=== PATIENT | female | born 2000 | race Caucasian/White ===

== ENCOUNTER 2022-08-03 12:02 | Emergency (ER) | payer OTHER, SELFPAY ==
--- NOTE | ~2022-08-03 | XR_ITS ---
EXAMINATION: XR knee LT min 4V DATE: 08/03/2022 13:23 INDICATION: Left knee pain. Fall. TECHNIQUE: 5 views of left knee were obtained. COMPARISON: None. FINDINGS: Bone alignment is normal. No fracture. Joint spaces are well maintained. There is no knee j oint effusion. IMPRESSION: 1. Normal left knee. Reviewed, dictated and finalized at location B. IMPRESSION: 1. Normal left knee.
[2022-08-03 12:57] VITALS: BP 115/60; PULSE 95; RESP 16; TEMP 37.2; O2SAT 100
--- NOTE | 2022-08-03 13:40 | ED.LOWEXIN ---
HPI - Extremity Injury (Lower) General Chief Complaint: Extremity Injury, Lower Stated Complaint: left knee injury Time Seen by Provider: 08/03/22 13:40 Source: patient Mode of arrival: ambulatory Limitations: no limitations History of Present Illness HPI Narrative: 21-year-old female presented for complaint of left knee pain, bruising for 3 days after injury. She was playing volleyball and fell onto the bent left knee. She was wearing a pad at the time. Since then she is had bruising and pain. She denies decreased range of motion, numbness, tingling, swelling or weakness of the lower extremity. She is taken ibuprofen. Related Data Home Medications Medication Instructions Recorded Confirmed medroxyprogesterone 150 mg/mL 150 mg IM [id number] 08/03/22 08/03/22 intramuscular suspension (Depo-Provera) Allergies Allergy/AdvReac Type Severity Reaction Status Date / Time No Known Allergies Allergy Verified 08/03/22 13:10 Review of Systems Review of Systems: CONSTITUTIONAL: Denies body aches, fever, chills CARDIOVASCULAR: Denies chest pain, palpitations, or edema. RESPIRATORY: Denies cough or dyspnea. SKIN: Denies rash, itching, or wounds. MUSCULOSKELETAL: Reports knee pain NEUROLOGIC: Denies headache, numbness, tingling, or weakness. All systems reviewed & are unremarkable except as noted in HPI and below PMFSH Comments At time of signature, I have reviewed and agree with nursing past medical, surgical, social and family history unless otherwise noted. Please see nursing chart for further information. There is no relevant family history pertinent to the presenting complaint Exam Narrative: GENERAL: Well-appearing CHEST: Speaks in full sentences. No respiratory distress. HEART: Regular rate and rhythm. Normal and equal peripheral pulses. EXTREMITIES: Left medial and anterior knee bruising; mild tenderness with palpation. Knee has normal strength and sensation, normal range of motion. No swelling, No open wounds or obvious deformity; pulse palpable and equal bilaterally, skin warm, dry, pink. Capillary refill less than 3 seconds. SKIN: Warm, dry, no rash. NEURO: Alert and oriented x3. Course Course Emergency Course: Patient is aware of diagnosis, understands and agrees to treatment plan. Anticipatory guidance given. Patient agrees to follow-up as directed and is aware of reasons to seek care at the emergency department. Portions of this record may have been created with voice recognition software Level of Care: [facility] Visit Vital Signs Vital signs: Vital Signs Temperature 99.0 F 08/03/22 12:57 Pulse Rate 95 08/03/22 12:57 Respiratory Rate 16 08/03/22 12:57 Blood Pressure 115/60 08/03/22 12:57 Pulse Oximetry 100 08/03/22 12:57 Oxygen Delivery Room Air 08/03/22 12:57 Temperature 99.0 F 08/03/22 12:57 Pulse Rate 95 08/03/22 12:57 Respiratory Rate 16 08/03/22 12:57 Blood Pressure 115/60 08/03/22 12:57 Pulse Oximetry 100 08/03/22 12:57 Oxygen Delivery Room Air 08/03/22 12:57 Reviewed MDM - Extremity Injury (Lower) MDM Narrative Medical decision making narrative: Result of x-ray reviewed with patient. She states she has a knee sleeve at home and will apply. Advised supportive measures and signs/symptoms to go to the ER. Pt is appropriate for outpt treatment and f/u. Differential Diagnosis Differential diagnosis: Likely acute internal derangement of knee and other (Sprain, strain, arthritis, bursitis, tendinitis) Imaging Data Radiologist's impression: Patient: Mili Vásquez : 2000 MR#: [id number] Age/Sex: 21 / F Acct:[id number] Loc: [facility]? ? ADM Date: 08/03/22Attending Dr: Ordering Physician: Stephany Uriarte APRN Date of Service: 08/03/22 Procedure(s): XR knee LT min 4V Accession Number(s): [id number] cc: Stephany Uriarte APRN~ EXAMINATION: XR knee LT min 4V DATE: 08/03/2022 13:23 INDICATION: Left
== END 2022-08-03 13:51 | disposition home or self-care (01) ==
PROVIDERS: Emergency Provider Nurse Practitioner Family
DX: M25.562 Pain in left knee (principal)
CPT/HCPCS: 73564; 99213; G0463

== ENCOUNTER 2025-06-19 10:50 | Emergency (ER) | payer OTHER, SELFPAY ==
--- NOTE | 2025-06-19 10:52 | ED_ITS ---
HPI - URI/Sore Throat General Chief Complaint: Upper Respiratory Infection Stated Complaint: upper respiratory Time Seen by Provider: 06/19/25 10:52 Source: patient Mode of arrival: ambulatory Limitations: no limitations History of Present Illness HPI Narrative: Mili is a 24-year-old female patient presenting to the clinic today with complaints of runny nose, cough, and nasal congestion times days. She reports h er boyfriend is also sick with similar symptoms. She denies any fevers, chills, body aches. She has not COVID tested herself. She denies any chest pain or shortness of breath. MD elicited complaint: sore throat and nasal congestion Related Data Home Medications ?Medication ?Instructions ?Recorded ?Confirmed ?Last Taken ?Type norethindrone 1 mg-ethinyl tablet 06/19/25 Unknown Hi story estradiol 20 mcg (24)-iron 75 mg (4) tablet (Blisovi 24 Fe) Allergies Allergy/AdvReac Type Severity Reaction Status Date / Time No Known Allergies Allergy Verified 06/19/25 11:10 Review of Systems Review of Systems: Pertinent positives per HPI. Patient denies any fever, chills, rash, headache, visual changes, dizziness, cough, shortness of breath, chest pain, palpitations, nausea, vomiting, diarrhea, constipation, abdominal pain, or any urinary issues. PMFSH Comments At the time of my signature, I reviewed and agree with the nursing past medical, surgical, social, and family history. There is no relevant family history pertinent to the patient complaint. Exam Narrative: General: Well-developed, well nourished, in no apparent distress Head: Normocephalic, atraumatic Eyes: Pupils equally round and reactive to light bilaterally, EOM intact, sclera and conjunctive clear, no discharge, lids normal Ears: TMs intact and congested, ear canals clear, no drainage, grossly hearing normal. Nose: Nares patent, clear nasal discharge, no inflammation, no sinus tenderness. Mouth: Oral pharynx red without lesions or masses, good dentition, MMM. Postnasal drip Neck: Supple, trachea midline, no enlargement of anterior or posterior cervical nodes, no thyroid masses or goiter palpable. Cardio: Regular rate and rhythm, s1 and s2 normal, no murmur appreciated. Resp: Clear to auscultation bilaterally, no rhonchi, rales, wheezing or rubs Course Course Emergency Course: Portions of this record may have been created with voice recognition software. Level of Care: Express Care Visit Vital Signs Vital signs: Vital Signs Temperature 36.7 C 06/19/25 11:02 Pulse Rate 88 06/19/25 11:02 Respiratory Rate 14 06/19/25 11:02 Blood Pressure 130/81 06/19/25 11:02 Pulse Oximetry 99 06/19/25 11:02 Oxygen Delivery Room Air 06/19/25 11:02 Temperature 36.7 C 06/19/25 11:02 Pulse Rate 88 06/19/25 11:02 Respiratory Rate 14 06/19/25 11:02 Blood Pressure 130/81 06/19/25 11:02 Pulse Oximetry 99 06/19/25 11:02 Oxygen Delivery Room Air 06/19/25 11:02 Vital signs reviewed MDM - URI/Sore Throat MDM Narrative Medical decision making narrative: At the time of visit patient is resting comfortably on the exam table. Patient appears to be nontoxic. Complaints of runny nose, cough, and nasal congestion times days. She reports her boyfriend is also sick with similar symptoms. She denies any fevers, chills, body aches. She has not COVID tested herself. She denies any chest pain or shortness of breath. On exam patient has clear nasal discharge, ear congestion, and postnasal drip. Offered COVID testing and patient declined. Plan: I suspect patient has URI. Work note was given for today. Supportive measures were discussed with the patient and they voiced understanding discharge instructions and agrees to treatment plan. Return precautions reviewed Differential Diagnosis Differential diagnosis: Likely upper respiratory infection, otitis media, sinusitis, viral infection, bronchitis, influenza, pharyngitis and other (COVID) Discharge Plan Discharge Clinical Impression: Upper respiratory infection Qualifiers: URI type: unspecified URI Qualified Code(s): J06.9 - Acute upper respiratory infection, unspecified Patient Disposition: Home Condition: Stable Instructions: Antibiotic Form, Cold Symptoms (ED) Additional Instructions: May take Sudafed as needed for nasal congestion May take DayQuil/NyQuil for cold/flu symptoms Increase fluids and stay well hydrated May take Tylenol or motrin as directed on bottle for pain/fever May use Flonase 1 spray in each nare daily May take OTC antihistamines such as Zyrtec or Claritin daily as directed on bottle May apply Vicks vapor rub to chest to open sinuses Sinus rinses for congestion Cepacol spray, cough drops, throat lozenges, warm tea with honey/lemon, gargle salt water to soothe throat BRAT diet for diarrhea Clear liquids x 24 hours then advance as tolerated for nausea/vomiting Go to the ED if you develop a worsening in your condition- high fever not controlled by Tylenol or Motrin, dehydration, weakness, lethargy, shortness of breath, or chest pain. Follow up with your PCP in 3-5 days if symptoms persist. Patient Language: Mozambican Prescriptions: No Action Blisovi 24 Fe 1 mg-20 mcg (24)/75 mg (4) tablet Follow-up/Referrals: UNKNOWN,DOCTOR [Non-Staff] Stand Alone Forms: Work/School Release IP Time of Disposition: 11:30 Quality NIHSS Nursing Documentation ED NIHSS nursing documentation: reviewed/agree
[2025-06-19 11:02] VITALS: BP 130/81; PULSE 88; RESP 14; TEMP 36.7; O2SAT 99
--- OUTSIDE RECORDS SUMMARY | 2025-06-19 11:27 | XMS_ITS | Encounter Summary ---
Author Organization [facility] Address 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
--- OUTSIDE RECORDS SUMMARY | 2025-06-19 11:27 | XMS_ITS | Encounter Summary ---
Author Organization [facility] Address 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
--- OUTSIDE RECORDS SUMMARY | 2025-06-19 11:27 | XMS_ITS | Encounter Summary ---
Author Organization [facility] Address [address] [place] [address] Care Team Providers Care Esthetics Instructor Name Role Phone Ruben Andrews MD Primary Care Provider [phone] Encounter Details Date Type Department Care Team (Late st Contact Info) Description 06/18/2004 Outpatient Historical [facility] [place] 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
--- OUTSIDE RECORDS SUMMARY | 2025-06-19 11:27 | XMS_ITS | Encounter Summary ---
Author Organization [facility] Address [address] [place] [address] Care Team Providers Care Director Private Name Role Phone Ruben Andrews MD Primary Care Provider Encounter Details Date Type Department Care Team (Late st Contact Info) Description 06/28/2006 Outpatient Historical [facility] [place] 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
--- OUTSIDE RECORDS SUMMARY | 2025-06-19 11:27 | XMS_ITS | Encounter Summary ---
Author Organization [facility] Address [address] [place] [address] Care Team Providers Care Wicker Molded Candles Name Role Phone Ruben Andrews MD Primary Care Provider Encounter Details Date Type Department Care Team (Late st Contact Info) Description 07/22/2006 Outpatient Historical [facility] [place] 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
--- OUTSIDE RECORDS SUMMARY | 2025-06-19 11:27 | XMS_ITS | Encounter Summary ---
Author Organization [facility] Address [address] [place] [address] Care Team Providers Care Stone Operator Name Role Phone Ruben Andrews MD Primary Care Provider Encounter Details Date Type Department Care Team (Late st Contact Info) Description 08/23/2006 Outpatient Historical [facility] [place] 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
--- OUTSIDE RECORDS SUMMARY | 2025-06-19 11:27 | XMS_ITS | Encounter Summary ---
Author Organization [facility] Address [address] [place] [address] Care Team Providers Care Gallery Or Museum Attendant Name Role Phone Ruben Andrews MD Primary Care Provider Encounter Details Date Type Department Care Team (Late st Contact Info) Description 08/13/[address] [facility] [place] 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
--- OUTSIDE RECORDS SUMMARY | 2025-06-19 11:27 | XMS_ITS | Encounter Summary ---
Author Organization [facility] Address [address] [place] [address] Care Team Providers Care Ct Technician Name Role Phone Ruben Andrews MD Primary Care Provider Encounter Details Date Type Department Care Team (Late st Contact Info) Description 05/25/2007 Outpatient Historical [facility] [place] 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
--- OUTSIDE RECORDS SUMMARY | 2025-06-19 11:27 | XMS_ITS | Encounter Summary ---
Author Organization [facility] Address [address] [place] [address] Care Team Providers Care Lining Setter Name Role Phone Ruben Andrews MD Primary Care Provider Encounter Details Date Type Department Care Team (Late st Contact Info) Description 07/02/2003 Outpatient Historical [facility] [place] [address] [place] [phone] Herminio Tejada MD [address] [place], [place] [phone] Social History Tobacco Use Types Packs/Day Years Used Date Smoking Tobacco: Never Assessed Comments Unknown Sex and Gender Information Value Date Recorded Sex Assigned at Not on file Legal Sex Female 2:44 AM GRIP Gender Identity Not on file Sexual Orientation Not on file documented as of this encounter Plan of Treatment Not on file documented as of this encounter Visit Diagnoses Not on filedocumented in this encounter Care Teams Lining Setter Relationship Specialty Start Date End Date Ruben Andrews MD [address] [place] [phone] PCP - General Internal Medicine 04/01/21 documented as of this encounter
--- OUTSIDE RECORDS SUMMARY | 2025-06-19 11:27 | XMS_ITS | Encounter Summary ---
Author Organization [facility] Address [address] [place] [address] Care Team Providers Care Primary Care Provider Name Role Phone Ruben Andrews MD Primary Care Provider [phone] Encounter Details Date Type Department Care Team (Late st Contact Info) Description 11/06/2003 Outpatient Historical [facility] [place] [address] [place] [address] Tona Miranda Social History Tobacco Use Types Packs/Day Years Used Date Smoking Tobacco: Never Assessed Comments Unknown Sex and Gender Information Value Date Recorded Sex Assigned at Not on file Legal Sex Female 2:[address] TECHNOLOGIST Gender Identity Not on file Sexual Orientation Not on file documented as of this encounter Plan of Treatment Not on file documented as of this encounter Visit Diagnoses Not on filedocumented in this encounter Care Teams Primary Care Provider Relationship Specialty Start Date End Date Ruben Andrews MD [address] [place] [phone] PCP - General Internal Medicine 04/01/21 documented as of this encounter
--- OUTSIDE RECORDS SUMMARY | 2025-06-19 11:27 | XMS_ITS | Encounter Summary ---
Author Organization [facility] Address [address] [place] [address] Care Team Providers Care Bisque Grader Name Role Phone Ruben Andrews MD Primary Care Provider Encounter Details Date Type Department Care Team (Late st Contact Info) Description 09/15/2007 Outpatient Historical [facility] [place] 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
--- OUTSIDE RECORDS SUMMARY | 2025-06-19 11:27 | XMS_ITS | Clinical Summary ---
Author Organization [facility] Administrative Offices Address [address] [place] [address] Care Team Providers Care Assistant Professor Of Surgery Name Role Phone Ruben Andrews MD Primary Care Provider [phone] Allergies No known active allergies Medications amphetamine-dextr oamphetamine (Adderall XR) 10 mg Extended Release 24 hour capsuleIndication s:Attention deficit disorder, unspecified hyperactivity presence Take 1 Capsule (10 mg) by mouth daily in the morning. Max Daily Amount: 10 mg 30 Capsule 4 Active Norethindrn A-E estradiol-Iron (Microgestin 24 FE) 1 mg-20 mcg (24)/75 mg (4) tabletIndications :Oral contraceptive pill surveillance Take 1 Tablet by mouth daily. 84 Tablet 3 5 Active fluconazole (DIFLUCAN) 150 mg tablet Take 1 tab (150 mg) by mouth on day one. Take additional tab (150 mg) by mouth 3 days after initial dose 2 Tablet 5 Active Active Problems Problem Noted Date Diagnosed Date Screening for tuberculosis 11/22/2023 Sprain of medial collateral ligament of knee Weakness of left lower extremity 01/10/2018 Disorder of patellofemoral joint 01/20/2017 Resolved Problems Problem Noted Date Diagnosed Date Resolved Date Folliculitis 05/22/2010 06/18/2010 Overview (05/22/2010): exposure to hot tub Cellulitis 05/22/2010 06/18/2010 Encounters Date Type Department Care Team Description 05/02/2025 External Device Data STL ABSTRACTION Provider, Abstract 04/10/2025 External Device Data STL ABSTRACTION Provider, Abstract 04/06/2025 Results Follow-Up [facility] [facility] [address] [facility] [address] [place] [address] Ivelisse Best NP CERV/VAG CYTO AGE BASED SCREEN PAP 04/04/2025 5:40 PM CDT Office Visit [facility] [employer] [facility] [address] [facility] [address] [place] [address] Ivelisse Best NP Encounter for gynecological examination with abnormal finding (Primary Dx); Screening examination for STD (sexually transmitted disease); Breakthrough bleeding on control pills; Oral contraceptive pill surveillance from Last 3 Months Immunizations Immunization Administration Dates Next Due (ADACEL/BOOSTRIX)(10 YR UP) TDAP VACCINE, 0.5ML, IM 06/01/2014 (GARDASIL 9)(9-45 YRS) HUMAN PAPILLOMAVIRUS VACCINE, TYPES 6, 11, 16, 18, 31, 33, 45, 52, 58, NONAVALENT (9VHPV), 2 OR 3 DOSE, IM 03/29/2017 (GARDASIL)(9-45 YRS) HUMAN PAPILLOMAVIRUS VACCINE, TYPES 6, 11, 16, 18, QUADRIVALENT (4VHPV), 3 DOSE, IM 03/23/2016 (HAVRIX/VAQTA)(12 MO-18 YRS) HEPATITIS A VACCINE 0.5 ML PED/ADOL 2 DOSE, IM 06/11/2009 (INFANRIX)(6 WKS-6 YRS) DIPT HERIA, TETANUS TOXOIDS, AND ACCELLULAR PERTUSSIS VACCINE (DTAP), 0.5 ML IM 05/30/2008,06/18/2004,05/24/2003,03/26,01/22/2003 (IPOL)(6 WKS AND UP) POLIOVI JUAN VACCINE, INACTIVATED (IPV), 3 DOSE, SUBCUT OR IM 05/30/2008,05/24/2003,03/26/2003,01/22 (M-M-R II/PRIORIX)(12 MO UP) MEASLES, MUMPS AND RUBELLA VIRUS VACCINE, 0.5 ML IM/SUBCUT 05/25/2007,03/12/2004 (MENACTRA)(9 MO-55 YR) MENIN GOCOCCAL POLYSACCHARIDE A, C, Y AND W-135 DIPTHERIA TOXOID CONJUGATE VACCINE, (PF), 0.5ML, IM 05/20/2020 (RECOMBIVAX HB/ENGERIX-B)(0- 19 YRS) HEPATITIS B VACCINE 5 MCG/0.5 ML OR 10 MCG/0.5 ML PED OR ADOL 3 DOSE (PF), IM 2002 (VARIVAX)(12 MOS UP)VARICELL A VIRUS VACCINE (PF) 0.5 ML, SUB CUT 05/30/2008,11/28/2003 HIB, Unspecified Formulation 11/28/2003,03/26/20 03,01/22/2003 Hepatitis A Vaccine 05/25/2007 Hepatitis B Vaccine 11/28/2003,03/26/2003,2002 INFLUENZA VACCINE QUADRIVALE NT 3 YR UP PF IM 09/08/2020 INFLUENZA VACCINE QUADRIVALE NT 6 MOS UP PF IM 11/19/2023 Influenza Seasonal Unspecifi ed Formulation IM 07/22/2006,08/05/2005,10/04/2003,08/29 Meningococcal A Conjugate Vaccine IM 06/01/2014 Meningococcal ACWY Vaccine, Unspecified Formulation 06/01/2014 Pneumococcal 7-valent conjug ate vaccine IM 06/18/2004,05/24/2003,03/26/2003,01/22 Skin Test TB 11/19/2023 Family History Medical History Relation Name Comments Diabetes Maternal Grandfather Diabetes Paternal Grandfather Relation Name Status Comments Brother Alive Father Alive Maternal Grandfather Mother Alive Paternal Grandfather Social History Tobacco Use Types Packs/Day Years Used Date Smoking Tobacco: Never Smokeless Tobacco: Never Tobacco Cessation:Counseling Given: Not Answered Alcohol Use Standard Drinks/Week Comments Yes 0 (1 standard drink = 0.6 oz pur e alcohol) OCC Comments No Sex and Gender Information Value Date Recorded Sex Assigned at Not on file Legal Sex Female 2:44 AM BASKET TURNER Gender Identity Not on file Sexual Orientation Not on file Last Filed Vital Signs Vital Sign Reading Time Taken Comments Blood Pressure 132/86 04/04/2025 5:32 PM CDT Pulse 81 03/08/2024 11:25 AM CDT Temperature 36.3 C (97.4 F) 03/08/2024 11:25 AM CDT Respiratory Rate 18 02/18/2022 2:02 AM CDT Oxygen Saturation 97% 03/08/2024 11:25 AM CDT Inhaled Oxygen Concentration - - Weight 72.2 kg (159 lb 3.2 oz) 04/04/2025 5:32 P M CDT Height 177.8 cm (5' 10) 04/04/2025 5:32 PM CDT Body Mass Index 22.84 04/04/2025 5:32 PM CDT Plan of Treatment Health Maintenance Due Date Last Done Comments HPV/Cotest (21-29) 2023 DTAP/TDAP/TD VACCINES (7 - T d or Tdap) 06/01/2024 06/01/2014, 05/30/2008, 06/18/2004, Additional history exists INFLUENZA VACCINE (#1) 2025 , 06/14/2023, 09/08/2020, Additional history exists COVID-19 Vaccine (3 - 2024-2 6 season) 2025 05/06/2021, 04/15/2021 CHLAMYDIA SCREENING (ANNUAL) 11-24 YEARS 07/11/2025 07/11/2024, 12/15/2021, 09/25/2020 CERVICAL CANCER SCREENING 04/04/2028 PAP SMEAR 04/04/2028 04/04/2025, 12/03/2023 HEPATITIS B VACCINES Completed 11/28/2003, 03/26/2003, 01/22/2003, Additional history exists HPV VACCINES Completed 03/29/2017, 03/23/2016 Procedures Procedure Name Priority Date/Time Associated Diagnosis Comments CERV/VAG CYTO AGE BASED SCREEN PAP Routine 04/04/2025 5:53 PM CDT Encounter for gynecological examination with abnormal finding Screening examination for STD (sexually transmitted disease) VAGINOSIS/VAGINITI S PANEL PLUS Routine 07/11/2024 11:08 AM CDT Acute vaginitis Screening examination for STD (sexually transmitted disease) from Last 3 Months or Most Recently Relevant to Health Maintenance Results * CERV/VAG CYTO AGE BASED SCREEN PAP (04/04/2025 5:53 PM CDT) COMMENT (PAP): [facility] Comment: This order for age-based cervical cancer and STI screening follows ACOG guidelines(PB 168, 140, YXB463). See individual assays for performing site location. CLINICAL INFORMATION [facility] Comment:None given LAST MENSTRUAL PERIOD [place] Comment:04/01/2025 PREV PAP: [place] Comment:NONE GIVEN PREV BX: [place] Comment:NONE GIVEN SOURCE [place] Comment:Endocervix ADEQUACY: [place] Comment: Satisfactory for evaluation. Endocervical/transformation zone component present. PAP INTERP [facility] Comment: Cytology Results: Negative for intraepithelial lesion or malignancy. COMMENT (PAP TEST) [facility] Comment: This Pap test has been evaluated with computer assisted technology. SOCIAL MEDIA ANALYST: [facility] Comment: BES, CT(ASCP) CT screening location: [place] [address] [place] [address] EXPLANATORY NOTE [facility] Comment: EXPLANATORY NOTE: The Pap is a screening test for cervical cancer. It is not a diagnostic test and is subject to false negative and false positive results. It is most reliable when a satisfactory sample, regularly obtained, is submitted with relevant clinical findings and history, and when the Pap result is evaluated along with historic and current clinical information. CHLAMYDIA TRACHOMATIS RNA, TMA, UROGENITAL NOT DETECTED NOT DETECTED [facility] NEISSERIA GONORRHOEAE RNA, TMA, UROGENITAL NOT DETECTED NOT DETECTED [facility] COMMENT INFECTIOUS DISEASE [facility] Comment: The analytical performance characteristics of this assay, when used to test SurePath(TM) specimens have been determined by [facility]. The modifications have not been cleared or approved by the FDA. This assay has been validated pursuant to the CLIA regulations and is used for clinical purposes. For additional information, please refer to https://education.Visedo/faq/ZQE165 (This link is being provided for information/ educational purposes only.) Test Performed at: [facility] [address] [place] [address] [facility] Genital SWAB OF ENDOCERVIX / Unknown 04/04/2025 5:53 PM CDT 04/05/2025 4:39 PM CDT Ivelisse Best NP PATHOLOGY/CYTOLOGY O RDERABLES Final Result Performing Organization Address City/[facility]/ZIP Co de Phone Number [facility] [phone] [facility] [address] [place] [address] * VAGINOSIS/VAGINITIS PANEL PLUS (07/11/2024 11:08 AM CDT) BACTERIAL VAGINOSIS NEGATIVE NEGATIVE [facility] ALEJANDRA SPECIES NOT DETECTED NOT DETECTED [facility] ALEJANDRA GLABRATA NOT DETECTED NOT DETECTED [facility] Comment: Alejandra species C. albicans, C. tropicalis, C. parapsilosis, and/or C. dubliniensis can be detected, but not differentiated, in the Alejandra spp. result. TRICHOMONAS VAGINALIS (TV), TMA NOT DETECTED NOT DETECTED [facility] CHLAMYDIA TRACHOMATIS RNA, TMA, UROGENITAL NOT DETECTED NOT DETECTED [facility] NEISSERIA GONORRHOEAE RNA, TMA, UROGENITAL NOT DETECTED NOT DETECTED [facility] Comment: For additional information, please refer to https://education.Visedo/faq/KYF188 (This link is being provided for information/ educational purposes only.) Test Performed at: [facility] [address] [place] [address] Robbin Contreras MD Genital SPECIMEN FROM VAGINA / Unknown 07/11/2024 11:08 AM CDT 07/12/2024 3:38 AM CDT Ivelisse Best NP MICROBIOLOGY - GENER AL ORDERABLES Final Result [facility] [phone] [facility] [address] [place] [address] from Last 3 Months or Most Recently Relevant to Health Maintenance Insurance RX [employer] RX Member Subscriber Plan / Payer (Ef fective 2023-Present) Name:Mili Vásquez Relation to Subscriber:Self Name:Mili Vásquez Subscriber ID:Not on file Payer ID:Not on file Type:RX Commercial Address: [address] [place] [employer] [address] Care Teams Assistant Professor Of Surgery Relationship Specialty Start Date End Date Ruben Andrews MD [address] [place] [address] PCP - General Internal Medicine 04/01/21
--- OUTSIDE RECORDS SUMMARY | 2025-06-19 11:27 | XMS_ITS | Encounter Summary ---
Author Organization [facility] Address [address] [place] [address] Care Team Providers Care Paper Goods Machine Operator Name Role Phone Ruben Andrews MD Primary Care Provider Encounter Details Date Type Department Care Team (Late st Contact Info) Description 03/26/2003 Outpatient Historical [facility] Pediatrics [place] [address] [place] [phone] Herminio Tejada MD [address] [place], [place] [id number] Social History Tobacco Use Types Packs/Day Years Used Date Smoking Tobacco: Never Assessed Comments Unknown Sex and Gender Information Value Date Recorded Sex Assigned at Not on file Legal Sex Female 2:44 AM CITRUS FRUIT PACKER Gender Identity Not on file Sexual Orientation Not on file documented as of this encounter Plan of Treatment Not on file documented as of this encounter Visit Diagnoses Not on filedocumented in this encounter Care Teams Paper Goods Machine Operator Relationship Specialty Start Date End Date Ruben Andrews MD [address] [place] [address] PCP - General Internal Medicine 04/01/21 documented as of this encounter
--- OUTSIDE RECORDS SUMMARY | 2025-06-19 11:27 | XMS_ITS | Encounter Summary ---
Author Organization [facility] Address [address] [place] [address] Care Team Providers Care Instant Print Operator Name Role Phone Ruben Andrews MD Primary Care Provider Encounter Details Date Type Department Care Team (Late st Contact Info) Description 12/02/2007 Outpatient Historical [facility] [place] [address] [place] [address] Yahir Pandya MD NO ADDRESS ON FILE Social History Tobacco Use Types Packs/Day Years Used Date Smoking Tobacco: Never Assessed Comments Unknown Sex and Gender Information Value Date Recorded Sex Assigned at Not on file Legal Sex Female 2:44 AM TECHNICAL SERVICES REPRESENTATIVE Gender Identity Not on file Sexual Orientation Not on file documented as of this encounter Plan of Treatment Not on file documented as of this encounter Visit Diagnoses Not on filedocumented in this encounter Care Teams Instant Print Operator Relationship Specialty Start Date End Date Ruben Andrews MD [address] [place] [address] PCP - General Internal Medicine 04/01/21 documented as of this encounter
--- OUTSIDE RECORDS SUMMARY | 2025-06-19 11:27 | XMS_ITS | Encounter Summary ---
Author Organization [facility] Address [address] [place] [address] Care Team Providers Care Leaflet Or Newspaper Deliverer Name Role Phone Ruben Andrews MD Primary Care Provider Encounter Details Date Type Department Care Team (Late st Contact Info) Description 03/22/2006 Outpatient Historical [facility]s [place] [address] [place] [phone] Herminio Tejada MD [address] [place], [place] [phone] Social History Tobacco Use Types Packs/Day Years Used Date Smoking Tobacco: Never Assessed Comments Unknown Sex and Gender Information Value Date Recorded Sex Assigned at Not on file Legal Sex Female 2:44 AM CIRCULATION ANALYST Gender Identity Not on file Sexual Orientation Not on file documented as of this encounter Plan of Treatment Not on file documented as of this encounter Visit Diagnoses Not on filedocumented in this encounter Care Teams Leaflet Or Newspaper Deliverer Relationship Specialty Start Date End Date Ruben Andrews MD [address] [place] [address] PCP - General Internal Medicine 04/01/21 documented as of this encounter
--- OUTSIDE RECORDS SUMMARY | 2025-06-19 11:27 | XMS_ITS | Encounter Summary ---
Author Organization [facility] Address [address] [place] [address] Care Team Providers Care Car Distributor Name Role Phone Ruben Andrews MD Primary Care Provider Encounter Details Date Type Department Care Team (Late st Contact Info) Description 12/17/2004 Outpatient Historical [facility] Pediatrics [place] [address] [place] [phone] Herminio Tejada MD [address] [place], [place] [phone] Social History Tobacco Use Types Packs/Day Years Used Date Smoking Tobacco: Never Assessed Comments Unknown Sex and Gender Information Value Date Recorded Sex Assigned at Not on file Legal Sex Female 2:44 AM FREIGHT SALES BROKER Gender Identity Not on file Sexual Orientation Not on file documented as of this encounter Plan of Treatment Not on file documented as of this encounter Visit Diagnoses Not on filedocumented in this encounter Care Teams Car Distributor Relationship Specialty Start Date End Date Ruben Andrews MD [address] [place] [address] PCP - General Internal Medicine 04/01/21 documented as of this encounter
--- OUTSIDE RECORDS SUMMARY | 2025-06-19 11:27 | XMS_ITS | Encounter Summary ---
Author Organization [facility] Address [address] [place] [address] Care Team Providers Care Restaurant Host Name Role Phone Ruben Andrews MD Primary Care Provider Encounter Details Date Type Department Care Team (Late st Contact Info) Description 11/28/2003 Outpatient Historical [facility]s [place] [address] [place] [phone] Herminio Tejada MD [address] [place], [place] [phone] Social History Tobacco Use Types Packs/Day Years Used Date Smoking Tobacco: Never Assessed Comments Unknown Sex and Gender Information Value Date Recorded Sex Assigned at Not on file Legal Sex Female 2:44 AM CABLE INSTALLER Gender Identity Not on file Sexual Orientation Not on file documented as of this encounter Plan of Treatment Not on file documented as of this encounter Visit Diagnoses Not on filedocumented in this encounter Care Teams Restaurant Host Relationship Specialty Start Date End Date Ruben Andrews MD [address] [place] [address] PCP - General Internal Medicine 04/01/21 documented as of this encounter
--- OUTSIDE RECORDS SUMMARY | 2025-06-19 11:27 | XMS_ITS | Encounter Summary ---
Author Organization [facility] Address [address] [place] [address] Care Team Providers Care Translational Specialist Name Role Phone Ruben Andrews MD Primary Care Provider [phone] Encounter Details Date Type Department Care Team (Late st Contact Info) Description 12/12/2003 Outpatient Historical [facility] Pediatrics [place] [address] [place] [phone] Herminio Tejada MD [address] [place], [place] [phone] Social History Tobacco Use Types Packs/Day Years Used Date Smoking Tobacco: Never Assessed Comments Unknown Sex and Gender Information Value Date Recorded Sex Assigned at Not on file Legal Sex Female 2:44 AM PATTERN DRUM MAKER Gender Identity Not on file Sexual Orientation Not on file documented as of this encounter Plan of Treatment Not on file documented as of this encounter Visit Diagnoses Not on filedocumented in this encounter Care Teams Translational Specialist Relationship Specialty Start Date End Date Ruben Andrews MD [address] [place] [address] PCP - General Internal Medicine 04/01/21 documented as of this encounter
--- OUTSIDE RECORDS SUMMARY | 2025-06-19 11:27 | XMS_ITS | Encounter Summary ---
Author Organization [facility] Address [address] [place] [address] Care Team Providers Care Elevator Troubleshooter Name Role Phone Ruben Andrews MD Primary Care Provider Encounter Details Date Type Department Care Team (Late st Contact Info) Description 02/28/2007 Outpatient Historical [facility] Pediatrics [place] [address] [place] [phone] Herminio Tejada MD [address] [place], [place] [phone] Social History Tobacco Use Types Packs/Day Years Used Date Smoking Tobacco: Never Assessed Comments Unknown Sex and Gender Information Value Date Recorded Sex Assigned at Not on file Legal Sex Female 2:44 AM NET SORTER Gender Identity Not on file Sexual Orientation Not on file documented as of this encounter Plan of Treatment Not on file documented as of this encounter Visit Diagnoses Not on filedocumented in this encounter Care Teams Elevator Troubleshooter Relationship Specialty Start Date End Date Ruben Andrews MD [address] [place] [address] PCP - General Internal Medicine 04/01/21 documented as of this encounter
--- OUTSIDE RECORDS SUMMARY | 2025-06-19 11:27 | XMS_ITS | Encounter Summary ---
Author Organization [facility] Address [address] [place] [address] Care Team Providers Care Landscape Gardener Name Role Phone Ruben Andrews MD Primary Care Provider Encounter Details Date Type Department Care Team (Late st Contact Info) Description 12/02/2007 Outpatient Historical [facility] Pediatric[facility] [place] [address] [place] [address] Yahir Pandya MD NO ADDRESS ON FILE Social History Tobacco Use Types Packs/Day Years Used Date Smoking Tobacco: Never Assessed Comments Unknown Sex and Gender Information Value Date Recorded Sex Assigned at Not on file Legal Sex Female 2:44 AM DELI CUTTER SLICER Gender Identity Not on file Sexual Orientation Not on file documented as of this encounter Plan of Treatment Not on file documented as of this encounter Visit Diagnoses Not on filedocumented in this encounter Care Teams Landscape Gardener Relationship Specialty Start Date End Date Ruben Andrews MD [address] [place] [address] [place] [address] PCP - General Internal Medicine 04/01/21 documented as of this encounter
--- OUTSIDE RECORDS SUMMARY | 2025-06-19 11:27 | XMS_ITS | Encounter Summary ---
Author Organization [facility] Address [address] [place] [address] Care Team Providers Care Apiculture Teacher Name Role Phone Ruben Andrews MD Primary Care Provider Encounter Details Date Type Department Care Team (Late st Contact Info) Description 05/09/2003 Outpatient Historical [facility] Pediatrics [place] [address] [place] [phone] Herminio Tejaad MD [address] [place], [place] [phone] Social History Tobacco Use Types Packs/Day Years Used Date Smoking Tobacco: Never Assessed Comments Unknown Sex and Gender Information Value Date Recorded Sex Assigned at Not on file Legal Sex Female 2:44 AM STEAM PAN SPONGER Gender Identity Not on file Sexual Orientation Not on file documented as of this encounter Plan of Treatment Not on file documented as of this encounter Visit Diagnoses Not on filedocumented in this encounter Care Teams Apiculture Teacher Relationship Specialty Start Date End Date Ruben Andrews MD [address] [place] [address] PCP - General Internal Medicine 04/01/21 documented as of this encounter
--- OUTSIDE RECORDS SUMMARY | 2025-06-19 11:27 | XMS_ITS | Encounter Summary ---
Author Organization [facility] Address [address] [place] [address] Care Team Providers Care Chief Engineer'S Helper Name Role Phone Ruben Andrews MD Primary Care Provider Encounter Details Date Type Department Care Team (Late st Contact Info) Description 03/18/2006 Outpatient Historical [facility] Pediatrics [place] [address] [place] [phone] Herminio Tejada MD [address] [place], [place] [phone] Social History Tobacco Use Types Packs/Day Years Used Date Smoking Tobacco: Never Assessed Comments Unknown Sex and Gender Information Value Date Recorded Sex Assigned at Not on file Legal Sex Female 2:44 AM REFINERY OPERATOR VISBREAKING Gender Identity Not on file Sexual Orientation Not on file documented as of this encounter Plan of Treatment Not on file documented as of this encounter Visit Diagnoses Not on filedocumented in this encounter Care Teams Chief Engineer'S Helper Relationship Specialty Start Date End Date Ruben Andrews MD [address] [place] [address] PCP - General Internal Medicine 04/01/21 documented as of this encounter
--- OUTSIDE RECORDS SUMMARY | 2025-06-19 11:27 | XMS_ITS | Encounter Summary ---
Author Organization [facility] Address [address] [place] [address] Care Team Providers Care Vice President Of Recruiting Name Role Phone Ruben Andrews MD Primary Care Provider Encounter Details Date Type Department Care Team (Late st Contact Info) Description 08/29/2003 Outpatient Historical [facility]s [place] [address] [place] [phone] Herminio Tejada MD [address] [place], [place] [id number] Social History Tobacco Use Types Packs/Day Years Used Date Smoking Tobacco: Never Assessed Comments Unknown Sex and Gender Information Value Date Recorded Sex Assigned at Not on file Legal Sex Female 2:44 AM DENTAL FLOSS PACKER Gender Identity Not on file Sexual Orientation Not on file documented as of this encounter Plan of Treatment Not on file documented as of this encounter Visit Diagnoses Not on filedocumented in this encounter Care Teams Vice President Of Recruiting Relationship Specialty Start Date End Date Ruben Andrews MD [address] [place] [address] PCP - General Internal Medicine 04/01/21 documented as of this encounter
--- OUTSIDE RECORDS SUMMARY | 2025-06-19 11:27 | XMS_ITS | Encounter Summary ---
Author Organization [facility] Address [address] [place] [address] Care Team Providers Care Steam Meter Reader Name Role Phone Ruben Andrews MD Primary Care Provider Encounter Details Date Type Department Care Team (Late st Contact Info) Description 12/17/2004 Outpatient Historical [facility] Pediatrics [place] [address] [place] [phone] Herminio Tejada MD [address] [place], [place] [phone] Social History Tobacco Use Types Packs/Day Years Used Date Smoking Tobacco: Never Assessed Comments Unknown Sex and Gender Information Value Date Recorded Sex Assigned at Not on file Legal Sex Female 2:44 AM BANQUET COORDINATOR Gender Identity Not on file Sexual Orientation Not on file documented as of this encounter Plan of Treatment Not on file documented as of this encounter Visit Diagnoses Not on filedocumented in this encounter Care Teams Steam Meter Reader Relationship Specialty Start Date End Date Ruben Andrews MD [address] [place] [address] PCP - General Internal Medicine 04/01/21 documented as of this encounter
--- OUTSIDE RECORDS SUMMARY | 2025-06-19 11:27 | XMS_ITS | Encounter Summary ---
Author Organization [facility] Address [address] [place] [address] Care Team Providers Care Communications Professional Name Role Phone Ruben Andrews MD Primary Care Provider Encounter Details Date Type Department Care Team (Late st Contact Info) Description 01/22/2003 Outpatient Historical [facility] Pediatric[facility] [place] [address] [place] [phone] Herminio Tejada MD [address] [place], [place] [phone] Social History Tobacco Use Types Packs/Day Years Used Date Smoking Tobacco: Never Assessed Comments Unknown Sex and Gender Information Value Date Recorded Sex Assigned at Not on file Legal Sex Female 2:44 AM SEASONAL SALES ASSOCIATE Gender Identity Not on file Sexual Orientation Not on file documented as of this encounter Plan of Treatment Not on file documented as of this encounter Visit Diagnoses Not on filedocumented in this encounter Care Teams Communications Professional Relationship Specialty Start Date End Date Ruben Andrews MD [address] [place] [address] PCP - General Internal Medicine 04/01/21 documented as of this encounter
--- OUTSIDE RECORDS SUMMARY | 2025-06-19 11:27 | XMS_ITS | Encounter Summary ---
Author Organization [facility] Address [address] [place] [address] Care Team Providers Care Lowerator Operator Name Role Phone Ruben Andrews MD Primary Care Provider Encounter Details Date Type Department Care Team (Late st Contact Info) Description 03/12/2004 Outpatient Historical [facility] Pediatrics [place] [address] [place] [address] Herminio Tejada MD [address] [place], [place] [phone] Social History Tobacco Use Types Packs/Day Years Used Date Smoking Tobacco: Never Assessed Comments Unknown Sex and Gender Information Value Date Recorded Sex Assigned at Not on file Legal Sex Female 2:44 AM GRAPHICS PRODUCTION SPECIALIST Gender Identity Not on file Sexual Orientation Not on file documented as of this encounter Plan of Treatment Not on file documented as of this encounter Visit Diagnoses Not on filedocumented in this encounter Care Teams Lowerator Operator Relationship Specialty Start Date End Date Ruben Andrews MD [address] [place] [address] PCP - General Internal Medicine 04/01/21 documented as of this encounter
--- OUTSIDE RECORDS SUMMARY | 2025-06-19 11:27 | XMS_ITS | Encounter Summary ---
Author Organization [facility] Address [address] [place] [address] Care Team Providers Care Rf Test Technician Name Role Phone Ruben Andrews MD Primary Care Provider Encounter Details Date Type Department Care Team (Late st Contact Info) Description 10/14/2004 Outpatient Historical [facility] Pediatric[facility] [place] [address] [place] [address] Tona Miranda Social History Tobacco Use Types Packs/Day Years Used Date Smoking Tobacco: Never Assessed Comments Unknown Sex and Gender Information Value Date Recorded Sex Assigned at Not on file Legal Sex Female 2:44 AM MANAGER TERMINAL Gender Identity Not on file Sexual Orientation Not on file documented as of this encounter Plan of Treatment Not on file documented as of this encounter Visit Diagnoses Not on filedocumented in this encounter Care Teams Rf Test Technician Relationship Specialty Start Date End Date Ruben Andrews MD [address] [place] [address] PCP - General Internal Medicine 04/01/21 documented as of this encounter
--- OUTSIDE RECORDS SUMMARY | 2025-06-19 11:27 | XMS_ITS | Encounter Summary ---
Author Organization [facility] Address [address] [place] [address] Care Team Providers Care Endoscopy Specialty Technician Name Role Phone Ruben Andrews MD Primary Care Provider Encounter Details Date Type Department Care Team (Late st Contact Info) Description 10/04/2003 Outpatient Historical [facility] Pediatrics [place] [address] [place] [address] Tona Miranda Social History Tobacco Use Types Packs/Day Years Used Date Smoking Tobacco: Never Assessed Comments Unknown Sex and Gender Information Value Date Recorded Sex Assigned at Not on file Legal Sex Female 2:44 AM INFORMATION COORDINATOR Gender Identity Not on file Sexual Orientation Not on file documented as of this encounter Plan of Treatment Not on file documented as of this encounter Visit Diagnoses Not on filedocumented in this encounter Care Teams Endoscopy Specialty Technician Relationship Specialty Start Date End Date Ruben Andrews MD [address] [place] [address] PCP - General Internal Medicine 04/01/21 documented as of this encounter
--- OUTSIDE RECORDS SUMMARY | 2025-06-19 11:27 | XMS_ITS | Encounter Summary ---
Author Organization [facility] Address [address] [place] [address] Care Team Providers Care Supervisor Electronics Processing Name Role Phone Ruben Andrews MD Primary Care Provider Encounter Details Date Type Department Care Team (Late st Contact Info) Description 04/06/2006 Outpatient Historical [facility] Pediatrics [place] [address] [place] [phone] Herminio Tejada MD [address] [place], [place] [phone] Social History Tobacco Use Types Packs/Day Years Used Date Smoking Tobacco: Never Assessed Comments Unknown Sex and Gender Information Value Date Recorded Sex Assigned at Not on file Legal Sex Female 2:44 AM ASSOCIATE FINANCIAL ANALYST Gender Identity Not on file Sexual Orientation Not on file documented as of this encounter Plan of Treatment Not on file documented as of this encounter Visit Diagnoses Not on filedocumented in this encounter Care Teams Supervisor Electronics Processing Relationship Specialty Start Date End Date Ruben Andrews MD [address] [place] [address] PCP - General Internal Medicine 04/01/21 documented as of this encounter
--- OUTSIDE RECORDS SUMMARY | 2025-06-19 11:27 | XMS_ITS | Encounter Summary ---
Author Organization [facility] Address [address] [place] [address] Care Team Providers Care Grain Grader Name Role Phone Ruben Andrews MD Primary Care Provider [phone] Encounter Details Date Type Department Care Team (Late st Contact Info) Description 09/28/2006 Outpatient Historical [facility] Pediatric[place] [address] [place] [address] Yahir Pandya MD NO ADDRESS ON FILE Social History Tobacco Use Types Packs/Day Years Used Date Smoking Tobacco: Never Assessed Comments Unknown Sex and Gender Information Value Date Recorded Sex Assigned at Not on file Legal Sex Female 2:44 AM FOOD SAFETY SPECIALIST Gender Identity Not on file Sexual Orientation Not on file documented as of this encounter Plan of Treatment Not on file documented as of this encounter Visit Diagnoses Not on filedocumented in this encounter Care Teams Grain Grader Relationship Specialty Start Date End Date Ruben Andrews MD [address] [place] [address] PCP - General Internal Medicine 04/01/21 documented as of this encounter
--- OUTSIDE RECORDS SUMMARY | 2025-06-19 11:27 | XMS_ITS | Encounter Summary ---
Author Organization [facility] Address [address] [place] [address] Care Team Providers Care Side Framer Name Role Phone Ruben Andrews MD Primary Care Provider Encounter Details Date Type Department Care Team (Late st Contact Info) Description 06/25/2004 Outpatient Historical [facility] Pediatrics [place] [address] [place] [address] Herminio Tejada MD [address] [place], [place] [phone] Social History Tobacco Use Types Packs/Day Years Used Date Smoking Tobacco: Never Assessed Comments Unknown Sex and Gender Information Value Date Recorded Sex Assigned at Not on file Legal Sex Female 2:44 AM CREATIVE LEAD Gender Identity Not on file Sexual Orientation Not on file documented as of this encounter Plan of Treatment Not on file documented as of this encounter Visit Diagnoses Not on filedocumented in this encounter Care Teams Side Framer Relationship Specialty Start Date End Date Ruben Andrews MD [address] [place] [address] PCP - General Internal Medicine 04/01/21 documented as of this encounter
--- OUTSIDE RECORDS SUMMARY | 2025-06-19 11:27 | XMS_ITS | Encounter Summary ---
Author Organization [facility] Address [address] [place] [address] Care Team Providers Care Mason Apprentice Name Role Phone Ruben Andrews MD Primary Care Provider Encounter Details Date Type Department Care Team (Late st Contact Info) Description 01/22/2003 Outpatient Historical [facility] Pediatrics [place] [address] [place] [address] Herminio Tejada MD [address] [place], [place] [phone] Social History Tobacco Use Types Packs/Day Years Used Date Smoking Tobacco: Never Assessed Comments Unknown Sex and Gender Information Value Date Recorded Sex Assigned at Not on file Legal Sex Female 2:44 AM PURCHASING BUYER Gender Identity Not on file Sexual Orientation Not on file documented as of this encounter Plan of Treatment Not on file documented as of this encounter Visit Diagnoses Not on filedocumented in this encounter Care Teams Mason Apprentice Relationship Specialty Start Date End Date Ruben Andrews MD [address] [place] [address] PCP - General Internal Medicine 04/01/21 documented as of this encounter
--- OUTSIDE RECORDS SUMMARY | 2025-06-19 11:27 | XMS_ITS | Encounter Summary ---
Author Organization [facility] Address [address] [place] [address] Care Team Providers Care Professor Of Communication And Writing Name Role Phone Ruben Andrews MD Primary Care Provider Encounter Details Date Type Department Care Team (Late st Contact Info) Description 2002 Outpatient Historical [facility] Pediatrics [place] [address] [place] [phone] Herminio Tejada MD [address] [place], [place] [phone] Social History Tobacco Use Types Packs/Day Years Used Date Smoking Tobacco: Never Assessed Comments Unknown Sex and Gender Information Value Date Recorded Sex Assigned at Not on file Legal Sex Female 2:44 AM GRINDER SET UP OPERATOR THREAD Gender Identity Not on file Sexual Orientation Not on file documented as of this encounter Plan of Treatment Not on file documented as of this encounter Visit Diagnoses Not on filedocumented in this encounter Care Teams Professor Of Communication And Writing Relationship Specialty Start Date End Date Ruben Andrews MD [address] [place] [address] PCP - General Internal Medicine 04/01/21 documented as of this encounter
--- OUTSIDE RECORDS SUMMARY | 2025-06-19 11:27 | XMS_ITS | Encounter Summary ---
Author Organization [facility] Address [address] [place]: Epic Prelude ADT [place] [address] Care Team Providers Care Postulant Name Role Phone Ruben Andrews MD Primary Care Provider Encounter Details Date Type Department Care Team (Late st Contact Info) Description 2002 Inpatient Historical Herminio Tejada MD [address] [place] [address] EMMY BORN IN HOSP-NO C/DELIVERY (Primary Dx) Social History Tobacco Use Types Packs/Day Years Used Date Smoking Tobacco: Never Assessed Comments Unknown Sex and Gender Information Value Date Recorded Sex Assigned at Not on file Legal Sex Female 2:44 AM SOUND EQUIPMENT MECHANIC Gender Identity Not on file Sexual Orientation Not on file documented as of this encounter Plan of Treatment Not on file documented as of this encounter Visit Diagnoses Diagnosis Single liveborn, born in hospital, delivered without mention of delivery- Primary documented in this encounter Care Teams Postulant Relationship Specialty Start Date End Date Ruben Andrews MD [address] [place] [address] PCP - General Internal Medicine 04/01/21 documented as of this encounter
--- OUTSIDE RECORDS SUMMARY | 2025-06-19 11:27 | XMS_ITS | Encounter Summary ---
Author Organization [facility] Address [address] [place] [address] Care Team Providers Care Gas Furnace Installer Name Role Phone Ruben Andrews MD Primary Care Provider Encounter Details Date Type Department Care Team (Late st Contact Info) Description 05/25/2007 Outpatient Historical [facility] Pediatrics [place] [address] [place] [address] Herminio Tejada MD [address] [place], [place] [address] Social History Tobacco Use Types Packs/Day Years Used Date Smoking Tobacco: Never Assessed Comments Unknown Sex and Gender Information Value Date Recorded Sex Assigned at Not on file Legal Sex Female 2:44 AM MILK ROUTE SUPERVISOR Gender Identity Not on file Sexual Orientation Not on file documented as of this encounter Plan of Treatment Not on file documented as of this encounter Visit Diagnoses Not on filedocumented in this encounter Care Teams Gas Furnace Installer Relationship Specialty Start Date End Date Ruben Andrews MD [address] [place] [address] PCP - General Internal Medicine 04/01/21 documented as of this encounter
--- OUTSIDE RECORDS SUMMARY | 2025-06-19 11:27 | XMS_ITS | Encounter Summary ---
Author Organization [facility] Address [address] [place] [address] Care Team Providers Care Baseball Coach Name Role Phone Ruben Andrews MD Primary Care Provider Encounter Details Date Type Department Care Team (Late st Contact Info) Description 06/29/2005 Outpatient Historical [facility] Pediatric[place] [address] [place] [address] Yahir Pandya MD NO ADDRESS ON FILE Social History Tobacco Use Types Packs/Day Years Used Date Smoking Tobacco: Never Assessed Comments Unknown Sex and Gender Information Value Date Recorded Sex Assigned at Not on file Legal Sex Female 2:44 AM PEDIATRIC PHYSICIAN Gender Identity Not on file Sexual Orientation Not on file documented as of this encounter Plan of Treatment Not on file documented as of this encounter Visit Diagnoses Not on filedocumented in this encounter Care Teams Baseball Coach Relationship Specialty Start Date End Date Ruben Andrews MD [address] [place] [address] PCP - General Internal Medicine 04/01/21 documented as of this encounter
--- OUTSIDE RECORDS SUMMARY | 2025-06-19 11:27 | XMS_ITS | Encounter Summary ---
Author Organization [facility] Address [address] [place] [address] Care Team Providers Care Ammonia Solution Preparer Name Role Phone Ruben Andrews MD Primary Care Provider Encounter Details Date Type Department Care Team (Late st Contact Info) Description 2002 Outpatient Historical [facility] Hearing Services [place] [id number] [place] [address] [address] Chow[address] [place] [address] Social History Tobacco Use Types Packs/Day Years Used Date Smoking Tobacco: Never Assessed Comments Unknown Sex and Gender Information Value Date Recorded Sex Assigned at Not on file Legal Sex Female 2:44 AM CLOTHING SUPERVISOR Gender Identity Not on file Sexual Orientation Not on file documented as of this encounter Plan of Treatment Not on file documented as of this encounter Visit Diagnoses Not on filedocumented in this encounter Care Teams Ammonia Solution Preparer Relationship Specialty Start Date End Date Ruben Andrews MD [address] [place] [phone] PCP - General Internal Medicine 04/01/21 documented as of this encounter
--- OUTSIDE RECORDS SUMMARY | 2025-06-19 11:27 | XMS_ITS | Encounter Summary ---
Author Organization [facility] Address [address] [place] [address] Care Team Providers Care Cemetery Keeper Name Role Phone Ruben Andrews MD Primary Care Provider Encounter Details Date Type Department Care Team (Late st Contact Info) Description 01/04/2007 Outpatient Historical [facility] Pediatric[place] [address] [place] [address] Yahir Pandya MD NO ADDRESS ON FILE Social History Tobacco Use Types Packs/Day Years Used Date Smoking Tobacco: Never Assessed Comments Unknown Sex and Gender Information Value Date Recorded Sex Assigned at Not on file Legal Sex Female 2:44 AM OB GYN Gender Identity Not on file Sexual Orientation Not on file documented as of this encounter Plan of Treatment Not on file documented as of this encounter Visit Diagnoses Not on filedocumented in this encounter Care Teams Cemetery Keeper Relationship Specialty Start Date End Date Ruben Andrews MD [address] [place] [address] PCP - General Internal Medicine 04/01/21 documented as of this encounter
--- OUTSIDE RECORDS SUMMARY | 2025-06-19 11:27 | XMS_ITS | Encounter Summary ---
Author Organization [facility] Address [address] [place] [address] Care Team Providers Care Warehouse Laborer Name Role Phone Ruben Andrews MD Primary Care Provider Encounter Details Date Type Department Care Team (Late st Contact Info) Description 08/05/2005 Outpatient Historical [facility] Pediatrics [place] [address] [place] [address] Herminio Tejada MD [address] [place], [place] [phone] Social History Tobacco Use Types Packs/Day Years Used Date Smoking Tobacco: Never Assessed Comments Unknown Sex and Gender Information Value Date Recorded Sex Assigned at Not on file Legal Sex Female 2:44 AM CUSTOMER PROFESSIONAL Gender Identity Not on file Sexual Orientation Not on file documented as of this encounter Plan of Treatment Not on file documented as of this encounter Visit Diagnoses Not on filedocumented in this encounter Care Teams Warehouse Laborer Relationship Specialty Start Date End Date Ruben Andrews MD [address] [place] [address] PCP - General Internal Medicine 04/01/21 documented as of this encounter
--- OUTSIDE RECORDS SUMMARY | 2025-06-19 11:27 | XMS_ITS | Encounter Summary ---
Author Organization [facility] Address [address] [place] [address] Care Team Providers Care Pest Control Chemical Technician Name Role Phone Ruben Andrews MD Primary Care Provider Encounter Details Date Type Department Care Team (Late st Contact Info) Description [address] [facility] Pediatrics [place] [address] [place] [address] Herminio Tejada MD [address] [place], [place] [phone] Social History Tobacco Use Types Packs/Day Years Used Date Smoking Tobacco: Never Assessed Comments Unknown Sex and Gender Information Value Date Recorded Sex Assigned at Not on file Legal Sex Female 2:44 AM COLOR WORKER Gender Identity Not on file Sexual Orientation Not on file documented as of this encounter Plan of Treatment Not on file documented as of this encounter Visit Diagnoses Not on filedocumented in this encounter Care Teams Pest Control Chemical Technician Relationship Specialty Start Date End Date Ruben Andrews MD [address] [place] [address] PCP - General Internal Medicine 04/01/21 documented as of this encounter
--- OUTSIDE RECORDS SUMMARY | 2025-06-19 11:27 | XMS_ITS | Encounter Summary ---
Author Organization [facility] Address [address] [place] [address] Care Team Providers Care Parole Officer Name Role Phone Ruben Andrews MD Primary Care Provider Encounter Details Date Type Department Care Team (Late st Contact Info) Description 07/16/[address] [facility] Pediatrics [place] [address] [place] [address] Herminio Tejada MD [address] [place], [place] [phone] Social History Tobacco Use Types Packs/Day Years Used Date Smoking Tobacco: Never Assessed Comments Unknown Sex and Gender Information Value Date Recorded Sex Assigned at Not on file Legal Sex Female 2:44 AM BUILDING ASSOCIATE Gender Identity Not on file Sexual Orientation Not on file documented as of this encounter Plan of Treatment Not on file documented as of this encounter Visit Diagnoses Not on filedocumented in this encounter Care Teams Parole Officer Relationship Specialty Start Date End Date Ruben Andrews MD [address] [place] [address] PCP - General Internal Medicine 04/01/21 documented as of this encounter
--- OUTSIDE RECORDS SUMMARY | 2025-06-19 11:27 | XMS_ITS | Encounter Summary ---
Author Organization [facility] Address [address] [place] [address] Care Team Providers Care Credit Front Office Developer Name Role Phone Ruben Andrews MD Primary Care Provider Encounter Details Date Type Department Care Team (Late st Contact Info) Description 12/10/2006 Outpatient Historical [facility] Pediatric[place] [address] [place] [address] Yahir Pandya MD NO ADDRESS ON FILE Social History Tobacco Use Types Packs/Day Years Used Date Smoking Tobacco: Never Assessed Comments Unknown Sex and Gender Information Value Date Recorded Sex Assigned at Not on file Legal Sex Female 2:44 AM WORM FARMER Gender Identity Not on file Sexual Orientation Not on file documented as of this encounter Plan of Treatment Not on file documented as of this encounter Visit Diagnoses Not on filedocumented in this encounter Care Teams Credit Front Office Developer Relationship Specialty Start Date End Date Ruben Andrews MD [address] [place] [address] PCP - General Internal Medicine 04/01/21 documented as of this encounter
--- OUTSIDE RECORDS SUMMARY | 2025-06-19 11:27 | XMS_ITS | Encounter Summary ---
Author Organization [facility] Address [address] [place] [address] Care Team Providers Care Senior Java Architect Name Role Phone Ruben Andrews MD Primary Care Provider Encounter Details Date Type Department Care Team (Late st Contact Info) Description 03/02/2006 Outpatient Historical [facility] Pediatrics [place] [address] [place] [address] Yahir Pandya MD NO ADDRESS ON FILE Social History Tobacco Use Types Packs/Day Years Used Date Smoking Tobacco: Never Assessed Comments Unknown Sex and Gender Information Value Date Recorded Sex Assigned at Not on file Legal Sex Female 2:44 AM STATION USHER Gender Identity Not on file Sexual Orientation Not on file documented as of this encounter Plan of Treatment Not on file documented as of this encounter Visit Diagnoses Not on filedocumented in this encounter Care Teams Senior Java Architect Relationship Specialty Start Date End Date Ruben Andrews MD [address] [place] [address] PCP - General Internal Medicine 04/01/21 documented as of this encounter
--- OUTSIDE RECORDS SUMMARY | 2025-06-19 11:27 | XMS_ITS | Encounter Summary ---
Author Organization [facility] Address [address] [place] [address] Care Team Providers Care Rubber Covering Machine Operator Name Role Phone Ruben Andrews MD Primary Care Provider Encounter Details Date Type Department Care Team (Late st Contact Info) Description 08/29/2004 Outpatient Historical [facility] Pediatrics [place] [address] [place] [address] Tona Miranda Social History Tobacco Use Types Packs/Day Years Used Date Smoking Tobacco: Never Assessed Comments Unknown Sex and Gender Information Value Date Recorded Sex Assigned at Not on file Legal Sex Female 2:44 AM HORTICULTURE SUPERINTENDENT Gender Identity Not on file Sexual Orientation Not on file documented as of this encounter Plan of Treatment Not on file documented as of this encounter Visit Diagnoses Not on filedocumented in this encounter Care Teams Rubber Covering Machine Operator Relationship Specialty Start Date End Date Ruben Andrews MD [address] [place] [address] PCP - General Internal Medicine 04/01/21 documented as of this encounter
--- OUTSIDE RECORDS SUMMARY | 2025-06-19 11:27 | XMS_ITS | Encounter Summary ---
Author Organization [facility] Address [address] [place] [address] Care Team Providers Care Dental Financial Coordinator Name Role Phone Ruben Andrews MD Primary Care Provider [phone] Encounter Details Date Type Department Care Team (Late st Contact Info) Description 03/26/2003 Outpatient Historical [facility] Pediatrics [place] [address] [place] [address] Herminio Tejada MD [address] [place], [place] [phone] Social History Tobacco Use Types Packs/Day Years Used Date Smoking Tobacco: Never Assessed Comments Unknown Sex and Gender Information Value Date Recorded Sex Assigned at Not on file Legal Sex Female 2:44 AM RAILROAD SURVEYOR Gender Identity Not on file Sexual Orientation Not on file documented as of this encounter Plan of Treatment Not on file documented as of this encounter Visit Diagnoses Not on filedocumented in this encounter Care Teams Dental Financial Coordinator Relationship Specialty Start Date End Date Ruben Andrews MD [address] [place] [address] PCP - General Internal Medicine 04/01/21 documented as of this encounter
--- OUTSIDE RECORDS SUMMARY | 2025-06-19 11:27 | XMS_ITS | Encounter Summary ---
Author Organization [facility] Address [address] [place] [address] Care Team Providers Care Quality Control Assistant Name Role Phone Ruben Andrews MD Primary Care Provider Encounter Details Date Type Department Care Team (Late st Contact Info) Description 05/24/2003 Outpatient Historical [facility] Pediatrics [place] 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
--- OUTSIDE RECORDS SUMMARY | 2025-06-19 11:27 | XMS_ITS | Encounter Summary ---
Author Organization [facility] Address [address] [place] [address] Care Team Providers Care Envelope Stamping Machine Operator Name Role Phone Ruben Andrews MD Primary Care Provider [phone] Encounter Details Date Type Department Care Team (Latest Contact Info) Description 06/25/2004 Outpatient Historical 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
--- OUTSIDE RECORDS SUMMARY | 2025-06-19 11:27 | XMS_ITS | Encounter Summary ---
Author Organization [facility] Address [address] [place] [address] Care Team Providers Care Conciliation Court Judge Name Role Phone Ruben Andrews MD Primary Care Provider Encounter Details Date Type Department Care Team (Late st Contact Info) Description 07/04/2003 Outpatient Historical [facility] Pediatrics [place] 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
--- OUTSIDE RECORDS SUMMARY | 2025-06-19 11:27 | XMS_ITS | Encounter Summary ---
Author Organization [facility] Address [address] [place] [address] Care Team Providers Care Quality Assurance Project Manager Name Role Phone Ruben Andrews MD Primary Care Provider Encounter Details Date Type Department Care Team (Late st Contact Info) Description 03/23/2005 Outpatient Historical [facility] Pediatrics [place] 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
--- OUTSIDE RECORDS SUMMARY | 2025-06-19 11:27 | XMS_ITS | Encounter Summary ---
Author Organization [facility] Address [address] [place] [address] Care Team Providers Care Security Architect Name Role Phone Ruben Andrews MD Primary Care Provider Encounter Details Date Type Department Care Team (Late st Contact Info) Description 2002 Outpatient Historical [facility] Pediatrics [place] 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
--- OUTSIDE RECORDS SUMMARY | 2025-06-19 11:27 | XMS_ITS | Encounter Summary ---
Author Organization [facility] Address [address] [place] [address] Care Team Providers Care Travel Med Surg Rn Name Role Phone Ruben Andrews MD Primary Care Provider Encounter Details Date Type Department Care Team (Late st Contact Info) Description 07/16/2004 Outpatient Historical [facility] Pediatrics [place] 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
--- OUTSIDE RECORDS SUMMARY | 2025-06-19 11:27 | XMS_ITS | Encounter Summary ---
Author Organization [facility] Address [address] [place] [address] Care Team Providers Care Research Associate Policy Name Role Phone Ruben Andrews MD Primary Care Provider Encounter Details Date Type Department Care Team (Late st Contact Info) Description 01/15/2005 Outpatient Historical [facility] Pediatrics [place] 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
--- OUTSIDE RECORDS SUMMARY | 2025-06-19 11:27 | XMS_ITS | Encounter Summary ---
Author Organization [facility] Address [address] [place] [address] Care Team Providers Care Cat Swamper Name Role Phone Ruben Andrews MD Primary Care Provider [phone] Encounter Details Date Type Department Care Team (Late st Contact Info) Description 11/09/2006 Outpatient Historical [facility] Pediatrics [place] 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
--- OUTSIDE RECORDS SUMMARY | 2025-06-19 11:27 | XMS_ITS | Encounter Summary ---
Author Organization [facility] Address [address] [place] [address] Care Team Providers Care Grape Grower Name Role Phone Ruben Andrews MD Primary Care Provider [phone] Encounter Details Date Type Department Care Team (Late st Contact Info) Description 11/17/2005 Outpatient Historical [facility] Pediatrics [place] 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
--- OUTSIDE RECORDS SUMMARY | 2025-06-19 11:27 | XMS_ITS | Encounter Summary ---
Author Organization [facility] Address [address] [place] [address] Care Team Providers Care Manager Fine Name Role Phone Ruben Andrews MD Primary Care Provider Encounter Details Date Type Department Care Team (Late st Contact Info) Description 02/01/2006 Outpatient Historical [facility] Pediatrics [place] 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
--- OUTSIDE RECORDS SUMMARY | 2025-06-19 11:28 | XMS_ITS | Encounter Summary ---
Author Organization [facility] Address [address] [place] [address] Care Team Providers Care Contracts Analyst Name Role Phone Ruben Andrews MD Primary Care Provider Encounter Details Date Type Department Care Team (Late st Contact Info) Description 2002 Outpatient Historical [facility] Pediatrics [place] 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
--- OUTSIDE RECORDS SUMMARY | 2025-06-19 11:28 | XMS_ITS | Clinical Summary ---
Author Organization [facility] [address] [place] [address] Care Team Providers Care Small Business Director Name Role Phone Ruben Andrews MD Primary Care Provider Allergies No known active allergies Medications medroxyPROGEST ERone 150 mg/mL injection INJECT 1 ML (150 MG) BY INTRAMUSCULAR INJECTION EVERY 90 DAYS. 3 Active Active Problems No known active problems Social History Tobacco Use Types Packs/Day Years Used Date Smoking Tobacco: Never Assessed Comments Unknown Sex and Gender Information Value Date Recorded Sex Assigned at Not on file Legal Sex Female 1:38 PM CDT Gender Identity Not on file Sexual Orientation Not on file Obstetrics History Plan of Treatment Health Maintenance Due Date Last Done Comments Cervical Cancer Screening 2002 Depression Screening 2002 Hepatitis C Screening 2002 HPV Vaccines (2 - 2-dose series) 09/22/2016 03/23/20 16 Meningococcal B Vaccine (1 o f 2 - Standard) 2018 Regular Well Visit/Exam 18-64 2020 DTaP/Tdap/Td Vaccine (7 - Td or Tdap) 06/01/2024 06/01/2014, 05/30/2008, 06/18/2004, Additional history exists Covid-19 Vaccine (3 - 2023-2 5 season) 2024 05/06/2021, 04/15/2021 Influenza Vaccine (#1) 2025 , 07/22/2006, 08/05/2005, Additional history exists Hepatitis B Screening Completed 11/28/2003 , 11/28/2003, 03/26/2003, Additional history exists Pneumococcal vaccine <65 Completed 004, 05/24/2003, 03/26/2003, Additional history exists Varicella Vaccines Completed 05/30/2008, 11/28/2003 Insurance Tre [place] [id number] [facility] Tre [place] [id number] Care Teams Small Business Director Relationship Specialty Start Date End Date Ruben Andrews MD PCP - General Internal Medicine 02/03/23
== END 2025-06-19 11:32 | disposition home or self-care (01) ==
LOC: EXPBETH 10:55
PROVIDERS: Emergency Provider Nurse Practitioner Family
DX: J06.9 Acute upper respiratory infection, unspecified (principal)
CPT/HCPCS: 99211; G0463